=== PATIENT | female | born 1945 | race Caucasian/White ===

== ENCOUNTER 2024-07-17 12:46 | Outpatient (CLI) | payer MEDICARE, OTHER, SELFPAY ==
[2024-07-17 13:27] LABS: Blood Urea Nitrogen 15 mg/dl (7-17); Estimated Glomerular Filt Rate 119 ml/min (>60); GFR (African American) 144 ML/MIN (>60)
[2024-07-17 16:20] LABS: Microscopic, Urine URINE MICROSCOPIC (MICROSCOPIC)
[2024-07-17 16:52] LABS: Appearance,Urine CLEAR (Clear); Bilirubin,Urine Negative (Negative); Blood, Urine 2+ (Negative); Color,Urine YELLOW (Yellow); Glucose,Urine (UA) Negative (Negative); Ketones,Urine Negative (Negative); Leukocyte Esterase,Urine 1+ (Negative); Nitrate,Urine Negative (Negative); PH,Urine 6.5 (5.0-8.5); Protein,Urine Negative (Negative); Urobilinogen,Urine 0.2 EU/dl (0.2)
[2024-07-17 19:10] LABS: RBC,Urine Occasional #/hpf (0-3)
== END 2024-07-17 23:59 | disposition home or self-care (01) ==
LOC: LAB 12:51
PROVIDERS: PCP Family Medicine; Visit Provider Urology
DX: N39.0 Urinary tract infection, site not specified (principal); R31.9 Hematuria, unspecified
CPT/HCPCS: 36415; 81001; 82565; 84520; 87086

== ENCOUNTER 2024-07-28 08:48 | Outpatient (CLI) | payer MEDICARE, OTHER, SELFPAY ==
--- NOTE | 2024-07-28 08:49 | CT_ITS ---
FINAL REPORT TECHNIQUE: Pre-and postcontrast axial CT images of the abdomen and pelvis were obtained. Coronal reformatted images were also obtained and reviewed. This study was performed with techniques to keep radiation doses as low as reasonably achievable (ALARA). Individualized dose reduction techniques using automated exposure control or adjustment of mA and/or kV according to the patient's size were employed. CLINICAL HISTORY: UTI COMPARISON: None FINDINGS: On the preinfusion images, there is no evidence of kidney stones. Dense vascular calcifications are noted in the abdominal aorta and iliac vessels. Postinfusion images demonstrate the left breast is absent. The lung bases are clear. There is mild diffuse fatty infiltration of the liver. The gallbladder is present. The spleen, pancreas, adrenals, and kidneys are unremarkable. The appendix is normal. There is extensive descending and sigmoid diverticulosis without evidence of diverticulitis. The urinary bladder is decompressed. There is mild stranding around the urinary bladder with segmental thickening of the bladder wall, probably due to cystitis. IMPRESSION: No evidence of kidney stones. Bladder wall thickening and inflammation consistent with cystitis. Descending and sigmoid diverticulosis without evidence of diverticulitis. Reviewed, Interpreted and Dictated by Len Turk MD Transcribed by Jeannette Salvador Authenticated and [facility]
[2024-07-28] MEDS: BARIUM SULFATE(READI-CAT2);450ML BOTTLE 450 ML PO (09:03)
[2024-07-28] MEDS: SODIUM CHLORIDE 0.9% 10ML SYR (RAD ONLY) 10 ML IV (09:03)
[2024-07-28] MEDS: IOPAMIDOL-370 (76%);100ML BOTTLE 75 ML IV (09:03)
== END 2024-07-28 23:59 | disposition home or self-care (01) ==
LOC: RAD 08:49
PROVIDERS: PCP Family Medicine; Visit Provider Urology
DX: N39.0 Urinary tract infection, site not specified (principal); R31.9 Hematuria, unspecified
CPT/HCPCS: 74178; Q9967

== ENCOUNTER 2024-08-14 14:58 | Outpatient (CLI) | payer MEDICARE, OTHER, SELFPAY ==
[2024-08-14 14:52] LABS: Microscopic, Urine URINE MICROSCOPIC (MICROSCOPIC)
[2024-08-14 15:58] LABS: Appearance,Urine CLEAR (Clear); Bilirubin,Urine Negative (Negative); Blood, Urine 3+ (Negative); Color,Urine YELLOW (Yellow); Glucose,Urine (UA) Negative (Negative); Ketones,Urine Negative (Negative); Leukocyte Esterase,Urine TRACE (Negative); Nitrate,Urine Negative (Negative); Protein,Urine 1+ (Negative); Specific Gravity, Urine >= 1.030 (1.005-1.030); Urobilinogen,Urine 0.2 EU/dl (0.2)
== END 2024-08-14 23:59 | disposition home or self-care (01) ==
LOC: LAB.DROPOF 14:59
PROVIDERS: PCP Urology; Visit Provider Urology
DX: N39.0 Urinary tract infection, site not specified (principal)
CPT/HCPCS: 81001; 87086

== ENCOUNTER 2024-09-08 09:35 | Day surgery (SDC) | payer MEDICARE, OTHER, SELFPAY ==
[2024-09-05 14:52] VITALS: BMI 23.8
[2024-09-08 09:57] VITALS: BP 118/67; PULSE 73; RESP 18; TEMP 36.3; O2SAT 97
[2024-09-08] MEDS: 0.9 % SODIUM CHLORIDE 500 ML 25 ML IV (10:10)
--- NOTE | 2024-09-08 10:14 | P.PCN_ITS ---
[facility] Procedure Note Date: 09/08/24 Time: 10:14 Procedure Note:: Chart review: The patient is here for cystoscopy because of 10 red cells per high-power field. Her CT scan with and without infusion shows bladder stranding. The patient is troubled with overactive bladder. She has been on E strace and Detrol. Preop diagnosis: Hematuria Postop diagnosis: Hematuria/possible bladder lesion/erythematous bladder Operative note: The patient was brought to the cystoscopy suite. She was prep ped and draped in the standard fashion. She underwent flexible cystoscopy. Her urethra has some inflammatory changes and wants to bleed slightly. Inspection of the bladder shows a concerning raised lesion in the vicinity of her left ureteral orifice. This could be edema but I worry about bladder cancer. There is also a patch in the posterior to the posterior right bladder that is erythematous and I will distention wants to bleed. I do not see a Don's ulcer. But again I am worried about carcinoma in situ. The patient is going to be in need of a bladder biopsy. I can submit a urine cytology.The daughter said in the past she was told after cystoscopy that she had a red spot. Perhaps IC changes. She asks about antibiotic coverage awaiting C/S. Unfotunately her organisms are quire resistant. I can send Cefdinir.
[2024-09-08 10:27] VITALS: BP 166/86; PULSE 78; RESP 16; TEMP 36.2; O2SAT 95
[2024-09-08 15:05] LABS: Microscopic,Cath URINE MICROSCOPIC (MICROSCOPIC)
[2024-09-08 15:08] LABS: Appearance,Urine/Cath CLEAR (Clear); Bilirubin,Cath Negative (Negative); Blood, Urine/Cath 3+ (Negative); Color,Urine/Cath YELLOW (Yellow); Glucose,Urine/Cath (UA) Negative (Negative); Ketones,Urine/Cath Negative (Negative); Leukocyte Esterase,Cath 1+ (Negative); Nitrate,Cath Negative (Negative); Protein,Urine/Cath 1+ (Negative); Urobilinogen,Cath 0.2 EU/dl (0.2)
[2024-09-08 15:42] LABS: Bacteria,Urine/Cath 3+ /lpf; Mucus,Urine/Cath 1+ /lpf; RBC,Urine/Cath TNTC # /hpf (0-3); WBC,Urine/Cath TNTC #/hpf (0-3)
== END 2024-09-08 10:27 | disposition home or self-care (01) ==
PROVIDERS: PCP Family Medicine; Visit Provider Urology
PROC: 0TJB8ZZ Inspection of Bladder, Via Natural or Artificial Opening Endoscopic (ICD-10-PCS; CPT 52000; principal; 2024-09-08 10:45)
DX: R31.9 Hematuria, unspecified (principal); N32.89 Other specified disorders of bladder
CPT/HCPCS: 52000; 81001; 87086